=== PATIENT | female | born 2000 | race Caucasian/White ===

== ENCOUNTER 2019-12-02 14:46 | Emergency (ER) | payer OTHER, SELFPAY ==
[2019-12-02 14:48] VITALS: BP 135/88; PULSE 96; RESP 16; TEMP 36.9; O2SAT 99; BMI 24.0
--- NOTE | 2019-12-02 15:01 | ED_ITS ---
HPI - URI/Sore Throat General: Chief Complaint: Dental/Oral Stated Complaint: SORE THROAT Time Seen by Provider: 12/02/19 14:53 Source: patient and family Mode of arrival: ambulatory Limitations: no limitations History of Present Illness: HPI Narrative: Patient is a 19-year-old female who presents to ED today along with a family member for complaints of not being able to keep down her antibiotics. Patient states about a week ago she began having a sore throat and fevers. She was initially seen at [facility] and swabbed for strep which was negative. She was sent home with a diagnosis of allergies and a prescription for allergy medication. Patient states her pain continued to worsen and family member began noticing exudates on her tonsils so recommended she return to [facility] for re-evaluation. She was re-swabbed for strep and apparently tested positive on that visit. She was prescribed amoxicillin but states she vomits after every dose. Family member is concerned for possible dehydration. MD elicited complaint: fever and sore throat Consistency: constant Severity: moderate Able to tolerate fluids by mouth: Yes Associated symptoms: Reports fever(s), nausea and vomiting; Deny abdominal pain, chills, chest pain, diarrhea, headache(s), nasal congestion or sinus pain Treatments prior to arrival: antibiotics Review of Systems Const: Reports: fever; Denies: chills, body aches, change in weight, fatigue or malaise Eyes: Denies: change in vision, blurry vision or photophobia ENMT: Reports: throat pain, enlarged tonsils and painful swallowing; Denies: uvular edema, oral sores/lesions, nasal discharge, nasal congestion, post nasal drip or facial/sinus pain Card: Denies: chest pain, palpitations, irregular heart rhythm, edema, lightheadedness, syncope or pre-syncope Resp: Denies: shortness of breath, productive cough, coughing up blood or chest congestion GI: Reports: nausea and vomiting; Denies: abdominal pain or diarrhea Skin/Breast: Denies: rash Neuro: Denies: headache PFSH ED PFSH: Social History Smoking and tobacco status: smoker, details unknown Female Reproductive History: Date of last menstrual period: 11/25/19 Physical Exam Const: COMMON NORMALS: no apparent distress, average body habitus, oriented x3, no limitations, healthy appearing, alert and well nourished HENMT: COMMON NORMALS: normocephalic, head/scalp atraumatic, hearing grossly normal bilaterally, external ears normal, EAC's normal, TM's normal bilaterally, external nose normal, nasal mucous membranes and turbinates normal and moist oral mucous membranes HEAD & SCALP: normal to inspection, normocephalic and atraumatic FACE & SINUS: normal facial exam and sinuses nontender NOSE: external nose normal and nasal mucous membranes and turbinates normal EX TERNAL EAR: Yes external ears normal EXTERNAL AUDITORY CANAL: EAC's normal TYMPANIC MEMBRANE: TM's normal bilaterally THROAT: tonsils abnormal bilateral erythema and exudates; no peritonsillar mass and no uvular edema Eye: COMMON NORMALS: PERRL, EOMs intact bilaterally and conjunctivae normal CONJUNCTIVA: Yes conjunctivae normal PUPIL: Yes PERRL Neck/C-Spine: GENERAL: Yes lymphadenopathy (bilateral anterior cervical ) Resp: COMMON NORMALS: normal respiratory effort Cardio: COMMON NORMALS: regular rate and regular rhythm RATE: regular rate RHYTHM: regular rhythm Neuro: COMMON NORMALS: oriented x3 SENSORIUM/ORIENTATION: Yes alert Skin: COMMON NORMALS: no rashes or lesions noted GENERAL SKIN EXAM: no rashes or lesions noted Course Vital Signs: Vital signs: Vital Signs Temperature 98.5 F 12/02/19 14:48 Pulse Rate 96 12/02/19 14:48 Respiratory Rate 16 12/02/19 14:48 Blood Pressure 135/88 12/02/19 14:48 Pulse Oximetry 99 12/02/19 14:48 MDM - URI/Sore Throat MDM Narrative: Medical decision making narrative: Patient was given IM Bicillin for treatment of her exudative streptococcal tonsillitis. She was given a liter of fluids for possible dehydration although patient's vital signs do not suggest dehydration. Upon her second visit at [facility] she was prescribed Zofran to help with the nausea and vomiting. She denies abdominal pain/diarrhea. Discharge Plan Discharge Patient Disposition: Home, Self-Care Clinical Impression: Acute streptococcal tonsillitis Qualifiers: Streptococcal tonsillitis recurrence: non-recurrent Qualified Code(s): J03.00 - Acute streptococcal tonsillitis, unspecified Condition: Stable Prescriptions: Discontinued amoxicillin 500 mg Tablet 500 mg PO BID RF: 0 Discharge Orders: Discharge Order (Routine); Ordered 12/02/19 Ordered By: Natalie Doyle Referrals: [facility] [Other] Discharge Diet: Soft Mechanical Discharge Activity: Increase activity as tolerated Patient Instructions: Strep Throat - Adult Activity Restrictions/Additional Instructions: As discussed you have been given an IM antibiotic injection for the strep throat. You do not require any additional antibiotics for treatment. Discontinue the amoxicillin your originally prescribed. You may continue the Zofran for nausea and vomiting as needed. Coding Level of Care Code ED Diamond Sizer And Grader for Chg Fwd Exam Detailed
[2019-12-02] MEDS: sodium chloride 0.9% 1,000 ML 999 ML IV (15:30)
[2019-12-02] MEDS: ondansetron 2 mg/ML SDV 2 mL 4 MG IVP (15:30)
[2019-12-02] MEDS: penicillin g (L-A) 1,200,000 unit/2 mL Syr 1200000 UNIT IM (17:20)
[2019-12-02 17:35] VITALS: PULSE 75; RESP 15; O2SAT 98
== END 2019-12-02 17:36 | disposition home or self-care (01) ==
PROVIDERS: Emergency Provider Physician Assistant
DX: J03.00 Acute streptococcal tonsillitis, unspecified (principal)
CPT/HCPCS: 12345; 96361; 96372; 96374; 96375; 99282; 99283; J0561; J2405; J7030

== ENCOUNTER → 2020-06-26 14:41 | Outpatient (BNVA) | payer OTHER, SELFPAY | PROVIDERS: Visit Provider Obstetrics & Gynecology | DX: Z12.4 Encounter for screening for malignant neoplasm of cervix (principal) | CPT/HCPCS: 88175 ==

== ENCOUNTER → 2020-07-07 16:35 | Outpatient (BNVA) | payer OTHER, SELFPAY | PROVIDERS: Visit Provider Nurse Practitioner Family | DX: J06.9 Acute upper respiratory infection, unspecified (principal) | CPT/HCPCS: 87635 ==

== ENCOUNTER → 2021-06-30 13:06 | Outpatient (BNVA) | payer OTHER, SELFPAY | PROVIDERS: Visit Provider Nurse Practitioner Women's Health | DX: N92.6 Irregular menstruation, unspecified (principal) | CPT/HCPCS: 81025; 84702 ==

== ENCOUNTER → 2021-07-03 14:53 | Outpatient (BNVA) | payer OTHER, SELFPAY | PROVIDERS: Visit Provider Nurse Practitioner Women's Health | DX: N92.6 Irregular menstruation, unspecified (principal) | CPT/HCPCS: 84702 ==

== ENCOUNTER → 2021-08-12 14:43 | Outpatient (BNVA) | payer OTHER, SELFPAY | PROVIDERS: Visit Provider Obstetrics & Gynecology | DX: Z34.90 Encounter for supervision of normal pregnancy, unspecified, unspecified trimester (principal) | CPT/HCPCS: 80307; 84315; 85027; 86592; 86762; 86803; 86850; 86900; 87086; 87340 ==

== ENCOUNTER → 2021-09-09 15:28 | Outpatient (BNVA) | payer OTHER, SELFPAY | PROVIDERS: Visit Provider Obstetrics & Gynecology | DX: Z34.90 Encounter for supervision of normal pregnancy, unspecified, unspecified trimester (principal) | CPT/HCPCS: 84315; 87491; 87591 ==

== ENCOUNTER → 2021-11-18 08:23 | Outpatient (BNVA) | payer MEDICAID, SELFPAY | PROVIDERS: Visit Provider Nurse Practitioner Women's Health | DX: Z34.80 Encounter for supervision of other normal pregnancy, unspecified trimester (principal) | CPT/HCPCS: 81000 ==

== ENCOUNTER → 2021-12-15 10:05 | Outpatient (BNVA) | payer MEDICAID, SELFPAY | PROVIDERS: Visit Provider Obstetrics & Gynecology | DX: Z34.80 Encounter for supervision of other normal pregnancy, unspecified trimester (principal) | CPT/HCPCS: 82950; 84315; 85027 ==

== ENCOUNTER → 2021-12-28 10:16 | Outpatient (BNVA) | payer MEDICAID, SELFPAY | PROVIDERS: Visit Provider Obstetrics & Gynecology | DX: Z34.01 Encounter for supervision of normal first pregnancy, first trimester (principal) | CPT/HCPCS: 81000 ==

== ENCOUNTER → 2022-02-10 10:35 | Outpatient (BNVA) | payer MEDICAID, SELFPAY | PROVIDERS: Visit Provider Obstetrics & Gynecology | DX: Z34.90 Encounter for supervision of normal pregnancy, unspecified, unspecified trimester (principal) | CPT/HCPCS: 84315; 87081 ==

== ENCOUNTER 2022-02-15 06:00 | Day surgery (SDC) | payer MEDICAID, SELFPAY ==
--- NOTE | 2022-02-15 08:35 | P.ANESASSM_ITS ---
Pre-Anesthetic Assessment Height/Weight: Height 1.63 m Preop Diagnosis: epidural epidural Familial anesthetic complications: none Social No alcohol and No tobacco Exam alert, oriented x 3, clear to auscultation bilaterally and regular rate & rhythm Airway Mallampati: Class II Dentition: full Pulmonary None reported CV/HEM None reported None reported Hepatic None reported GI Gastroesophageal Reflux Disease Metabolic None reported Musc/skel None reported Neuropsych None reported Anesthetic Plan ASA status: 2 Anesthesia: Regional (specify below) Risk of > 500 ml blood loss (7ml/kg in children): No Medications/Allergies Home Medications Medication Instructions Recorded Confirmed Last Taken Type prenat.vits,perry,[id number]-vatv-[id number] 1 tab PO DAILY 06/30/21 02/10/22 Unknown History breast pump (Pump In Style #1 ea 12/28/21 02/10/22 Unknown Rx Advanced) ferrous sulfate 325 mg (65 mg 325 mg PO DAILY 01/11/22 02/10/22 Unknown History iron) tablet,delayed release Allergies Allergy/AdvReac Type Severity Reaction Status Date / Time No Known Allergies Allergy Verified 02/10/22 10:56 [facility] Anesthesia Medical History No pertinent past medical history Denies diabetes, asthma, hypertension, seizures, DVT/PE PCP: [facility] Surgical History S/P breast augmentation x2 08/2019, bilateral breast augmentation revision of the left side in February or March of 2020 due to encapsulation/rejection of implants S/P wisdom tooth extraction 01/2017 Family History Grandfather Stroke maternal Heart disease maternal and paternal Denies family history of Colon cancer Ovarian cancer Diabetes Hyperlipidemia Breast cancer Hypertension Uterine cancer Thyroid condition Female Reproductive History Date of last menstrual period: 11/25/19 Data Anesthesia Cardiac Studies: No Data to Display
== END 2022-02-15 06:01 | disposition home or self-care (01) ==
LOC: OPS 03-04 09:21
PROVIDERS: PCP Nurse Practitioner Family; Visit Provider Obstetrics & Gynecology
DX: Z34.90 Encounter for supervision of normal pregnancy, unspecified, unspecified trimester (principal); Z3A.00 Weeks of gestation of pregnancy not specified
CPT/HCPCS: 81000

== ENCOUNTER 2022-02-15 06:11 | Outpatient (CLI) | payer MEDICAID, SELFPAY ==
--- NOTE | 2022-02-15 06:15 | US_ITS ---
WS: [id number] LIMITED OBSTETRICAL ULTRASOUND HISTORY: Z34.90 - Encounter for supervision of normal , evaluate growth. COMPARISON: 07/17/2021, 10/23/2021, 11/16/2021 and 01/11/2022 Presentation: Cephalic. Cervix: Closed and normal length. Placenta: Posterior, no previa. Grade: 3 HEART: FHR of 157 BPM. measurements: BPD = 9.5 cm = 38w6d HC = 34.7 cm = 40w2d AC = 30.4 cm = 34w3d FL = 7.4 cm = 38w0d Visually the amniotic fluid is low normal. EFW: 2937 g; 54 %. AGA by ultrasound: 37w6d LINDA by ultrasound: 03/02/2022 Growth asymmetry. Abdominal circumference is lagging behind the remaining parameters by approximately 4-6 weeks. Measurements appear accurately obtained and adequate. As compared to the first trimester ultrasound there has been appropriate growth otherwise. US/[place] [id number] IMPRESSION: 1. Single intrauterine gestation of 37 weeks 6 days with an EDC of 03/02/2022. 2. Estimated weight at the 54th percentile for age. 3. Abdominal circumference lagging behind the remaining biometry by 4-6 weeks. Suggest asymmetric intrauterine growth retardation. The estimated overall biom etry is now more concordant with the first trimester ultrasound than biometry o f 01/11/2022. Still asymmetry and small abdominal circumference. 4. Grade 3 placenta.
== END 2022-02-15 06:12 | disposition home or self-care (01) ==
PROVIDERS: PCP Nurse Practitioner Family; Visit Provider Obstetrics & Gynecology
DX: Z34.90 Encounter for supervision of normal pregnancy, unspecified, unspecified trimester (principal)
CPT/HCPCS: 76816

== ENCOUNTER → 2022-02-22 08:13 | Outpatient (BNVA) | payer MEDICAID, SELFPAY | PROVIDERS: PCP Nurse Practitioner Family; Visit Provider Obstetrics & Gynecology | DX: Z34.80 Encounter for supervision of other normal pregnancy, unspecified trimester (principal) | CPT/HCPCS: 81000 ==

== ENCOUNTER → 2022-03-01 08:23 | Outpatient (BNVA) | payer MEDICAID, SELFPAY | PROVIDERS: PCP Nurse Practitioner Family; Visit Provider Obstetrics & Gynecology | DX: Z34.80 Encounter for supervision of other normal pregnancy, unspecified trimester (principal) | CPT/HCPCS: 81000 ==

== ENCOUNTER 2022-03-05 21:53 | Outpatient (CLI) | payer MEDICAID, SELFPAY ==
[2022-03-05 22:12] VITALS: BMI 31.7
[2022-03-05 22:13] VITALS: RESP 16
[2022-03-05 23:36] LABS: Add Urine Microscopic? NO; Charge for UA Resulting for Rev
[2022-03-05 23:44] VITALS: BP 118/64; PULSE 83
[2022-03-05 23:51] LABS: Bilirubin Urine Neg (Negative); Blood Urine Neg (Negative); Glucose Urine UA Norm (Normal); Ketones Urine Negative (Negative); Leukocyte Esterase Urine Negative (Negative); Nitrate Urine Negative (Negative); Protein Urine Neg (Negative); Urine Appearance Clear (CLEAR); Urine Color Yellow (Yellow); Urobilinogen Urine Norm (Negative); pH Urine 7 (5-7)
[2022-03-06 00:45] VITALS: RESP 16
[2022-03-06 00:47] VITALS: BP 115/67; PULSE 93
== END 2022-03-06 00:57 | disposition home or self-care (01) ==
LOC: OPOB 21:57 → OBGYN 21:58
PROVIDERS: PCP Nurse Practitioner Family; Visit Provider Obstetrics & Gynecology
DX: O26.899 Other specified pregnancy related conditions, unspecified trimester (principal); Z3A.00 Weeks of gestation of pregnancy not specified; R10.9 Unspecified abdominal pain
CPT/HCPCS: 59025; 81003; 99211

== ENCOUNTER 2022-03-07 21:57 | Inpatient (IN) | payer MEDICAID, SELFPAY ==
[2022-03-07] VITALS (12 sets, daily range): BP systolic 112–137; BP diastolic 67–90; PULSE 90–97; RESP 16–18; TEMP 36.2–36.8; BMI 32.2
[2022-03-07 19:14] LABS: Nitrazine Paper, PH Negative
[2022-03-07 19:21] LABS: Basophils % 0.3 %; Eosinophils # 0.1 10^3/uL (0.0-0.8); Eosinophils % 1.5 %; Hematocrit 38.5 % (37.0-47.0); Hemoglobin 13.6 g/dL (11.5-15.3); Lymphocytes # 2.7 10^3/uL (0.8-4.8); Lymphocytes % 28.3 %; Mean Corpuscular HGB Conc 35.3 g/dL (30.0-36.0); Mean Corpuscular Volume 87.7 fl (81-99); Mean Platelet Volume 10.1 fL (7.4-10.4); Monocytes # 0.6 10^3/uL (0.2-0.9); Monocytes % 6.3 %; Neutrophils # 6.07 10^3/uL (1.8-7.7); Neutrophils % 63.1 %; Nucleated Red Blood Cells % 0 %; Platelet Count 241 10^3/cmm (130-400); Red Blood Count 4.39 10^6/uL (4.1-5.3); Red Cell Distribution Width 14.2 % (12.1-15.1); White Blood Count 9.6 10^3/uL (4.0-10.0)
[2022-03-08] VITALS (123 sets, daily range): BP systolic 100–186; BP diastolic 56–114; PULSE 69–134; RESP 16–18; TEMP 36.3–37.2; O2SAT 84–100
[2022-03-08] MEDS: lactated ringers 1,000 ML 999 ML IV (02:07)
[2022-03-08] MEDS: fentaNYL 50 mcg/mL INJ 2mL IVP (02:13)
[2022-03-08] MEDS: dextrose 5%-lactated ringers 1,000 ML 125 ML IV ×2 (03:18→07:58)
--- NOTE | 2022-03-08 03:23 | P.ANESUD_ITS ---
Documented by User: Miguel Angel Muñoz Jr, MEDICAL POLICY SPECIALIST 03/08/22 03:24 Pre-Anesthetic Update Pre-Anesthetic Assessment: Date of Surgery/Procedure: 03/08/22 Preop Diagnosis: epidural Proposed Procedure: RADHA Any changes to Pre-Anesthetic Assessment?: No Last Intake: 1500 Labs Last 48hrs: Short CBC 03/07/22 Range/Units 18:50 WBC 9.6 (4.0-10.0) 10^3/ uL Hgb 13.6 (11.5-15.3) g/dL Hct 38.5 (37.0-47.0) % MCV 87.7 (81-99) fl Plt Count 241 (130-400) 10^3/c mm Neut % (Auto) 63.1 % Neut # (Auto) 6.07 (1.8-7.7) 10^3/u L Vitals: Temperature 97.6 F 03/07/22 23:41 Temperature Source Tympanic 03/07/22 23:41 Pulse Rate 130 H 03/08/22 03:20 Pulse Rhythm 03/07/22 19:00 Pulse Strength 3+ Normal 03/07/22 19:00 Respiratory Rate 16 03/08/22 02:13 Respiratory Effort Non-Labored 03/08/22 02:13 Respiratory Depth Normal 03/08/22 02:13 Respiratory Patter n 03/08/22 02:13 Blood Pressure 122/76 03/08/22 03:18 Pulse Oximetry 90 03/08/22 03:20 Oxygen Delivery Me thod 03/07/22 19:00 Exam: Pre-Anes Outpt Exam: alert, oriented x 3, clear to auscultation bilaterally and regular rate & rhythm Cardiac Studies: No Data to Display Documented by User: Drew Ellis DO 03/08/22 08:46 Pre-Anesthetic Update Pre-Anesthetic Assessment: Date of Surgery/Procedure: 03/08/22 Cardiac Studies: No Data to Display
--- NOTE | 2022-03-08 03:25 | ANES.PROC ---
Anesthesia Procedures Procedure/Date: 03/08/22 Epidural: Time Out Performed: Yes Consents Signed: Procedure Consent Consent: requested by attending/covering physician, from patient, risks and benefits reviewed and patient agrees to proceed Lumbar Level: L3-L4 Epidural position: sitting Epidural procedure: sterile prep of area, 1% lidocaine to numb the area, 18 g needle, neg for paresthesia, test dose given, 1.5% xylocaine 1:200k epi (5cc), no systemic response, sterile dressing applied, L.U.D. no apparent complications and 0.2% Ropiavacaine @ mls/hr (13cc/hour) Additional Comments: JAD at 6cm. cath placed 3 cm into space. Pt tolerated well
[2022-03-08] MEDS: oxytocin 30 UNIT/500 ML BAG 600 UNIT IV (07:58)
--- NOTE | 2022-03-08 09:12 | P.PCNOB_ITS ---
Delivery Note: Date of delivery: March 08, 2022 Pre-delivery diagnoses: Term Post-delivery diagnoses: Term delivered Procedure: A spontaneous vaginal delivery Delivering Physician: Manjeet Mclaughlin MD Estimated blood loss (mL): 500 Delivery: The patient was noted to be complete and pushing, so was placed in the dorsal lithotomy position, prepped and draped in the usual sterile fashion for a vaginal delivery. Pt. Noted to have epidural anesthesia. At 0856 the patient delivered a term male weighing 3715 g with scores of 8 and 9 at one and five minutes, respectively. The vertex was delivered spontane ously over intact perineum. The patient was asked to push and the head delivered spontaneously in the NEO position, over an intact perineum. A nuchal cord was checked and 1 noted, and delivered through. The anterior shoulder delivered easily and the posterior shoulder followed. The remainder of the infant was easily delivered and the oropharynx and nasopharynx was bulb suctioned. The was noted to have spontaneous cry and spontaneous movement of all four extremities. The cord was clamped x 2 and cut and noted to have 2 arteries and one vein. The infant was passed to the mother's abdomen where nursing personnel were in attendance. Her blood sample was then obtained. The placenta delivered intact spontaneously and the uterus was explored. 20 units of Pitocin was placed in the IV bag to firm the uterus. Examination of the cervix and vaginal vault did not reveal any lacerations. A vaginal pack was then placed. Examination of the perineum showed second-degree vaginal laceration. The laceration was repaired with 3-0 Vicryl in the normal fashion in a running non locking fashion to reapproximate the laceration in layers. The vaginal pack was then removed. The patient tolerated this procedure well, and recovered in L&D with her in their LDR room. All sponge and needle counts were correct. History History History 1 Term Miscarriages/Ectopic Living Children 0 Coding Level of Care Code Acute Commercial Title Examiner for Chg Fwchavez
[2022-03-08] MEDS: acetaminophen 325 mg Tablet 650 MG PO ×2 (10:27→17:18)
[2022-03-08] MEDS: HYDROcodone-acetaminophen 5-325 mg Tablet PO ×2 (11:51→18:31)
[2022-03-08] MEDS: ibuprofen 800 mg tablet PO ×2 (14:20→20:28)
[2022-03-08] MEDS: docusate sodium 100 mg Capsule PO (17:17)
[2022-03-08 21:56] LABS: Hematocrit 31.3 % (37.0-47.0); Hemoglobin 11.2 g/dL (11.5-15.3); Mean Corpuscular HGB Conc 35.8 g/dL (30.0-36.0); Mean Corpuscular Hemoglobin 31.5 pg (28.0-34.0); Mean Corpuscular Volume 87.9 fl (81-99); Mean Platelet Volume 9.7 fL (7.4-10.4); Platelet Count 197 10^3/cmm (130-400); Red Blood Count 3.56 10^6/uL (4.1-5.3); Red Cell Distribution Width 14.2 % (12.1-15.1); White Blood Count 12.1 10^3/uL (4.0-10.0)
[2022-03-09] VITALS (16 sets, daily range): BP systolic 100–125; BP diastolic 64–81; PULSE 76–93; RESP 16; TEMP -12.4–36.9; O2SAT 95–97
--- NOTE | 2022-03-09 08:29 | P.CONIM_ITS ---
Providers/Reason For Consult Consulting Physician/Specialty*: OB Reason for Consult*: PDPH Attending Physician: Manjeet Mclaughlin MD Primary Care Provider: Bia Cramer APN History of Present Illness History of Present Illness Marlen Escoto is a 21 year old female who recently delivered with labor epidural for analgesia. I was called to bedside to evaluated for possible post dural puncture headache. Review of notes do not indicate difficulty with epidural placement or complications. Report from bedside RN is the patient is active, out of bed, and took a shower this morning. On arrival to patient room I found the patient lying in the right lateral recumbent position significant other resting on couch with light dimmed. Patient reports pain mostly in her neck approximately C4-C5, radiating to her occipital prominence and occasionally down the posterior back and even at times into her right shoulder and pectoris muscles. The pain in made worse when sitting and standing. On standing the patient describes worsening pain in the back of the neck, upper back, and radiating to occipital bone. She global headache or head pain, even with arising to sitting or standing position. With standing she endorses experiencing very tight back muscles. The pain is not worsened by loud noises, light. The pain is improved with rest and ibuprofen and also made better by lying flat, especially on side or supine without pillow. Denies hx of migraines or chronic headache, but she does have a history of muscle aches/pain/spasms which she will occasionally take gabapentin for with significant relief. She denies weakness. The patient describes her labor as long, with about 45 minutes of pushing time, and requiring considerable effort. She states her arms and back muscles are fatigued and she worked her back out hard. Medications/Allergies Home Medications Medication Instructions Recorded Confirmed Last Taken Type prenat.vits,perry,[id number] 1 tab PO DAILY 06/30/21 03/07/22 03/07/22 10:00 History breast pump (Pump In Style #1 ea 12/28/21 03/01/22 Unknown Rx Advanced) Allergies Allergy/AdvReac Type Severity Reaction Status Date / Time No Known Allergies Allergy Verified 03/01/22 08:38 Current Medications Generic Name Dose Route Start Last Admin Trade Name Freq PRN Reason Stop Dose Admin Acetaminophen 650 mg 03/07/22 18:44 03/08/22 17:18 Acetaminophen 325 Mg Tablet PO 650 mg Q6H PRN Administration Mild pain or temp > 100.4 Hydrocodone Bitart/Acetaminophen 1 - 2 tab 03/08/22 09:15 03/08/22 18:31 Hydrocodone-Acetaminophen 5-325 Mg Tablet PO 2 tab Q6H PRN Administration MODERATE TO SEVERE PAIN Docusate Sodium 100 mg 03/08/22 18:00 03/08/22 17:17 Docusate Sodium 100 Mg Capsule PO 100 mg BID YEISON Administration Fentanyl 25 - 100 mcg 03/07/22 18:44 03/08/22 02:13 Fentanyl 50 Mcg/Ml Inj 2ml IVP 25 mcg Q1H PRN Administration SEVERE PAIN Dextrose/Lactated Ringer's 1,000 mls @ 125 mls/hr 03/07/22 18:45 03/08/22 20:07 Dextrose 5%-Lactated Ringers IV Not Given .Q8H YEISON Oxytocin 30 unit in 500 mls @ 600 mls/hr 03/07/22 18:44 03/08/22 11:30 Pitocin IV Infused .Q50M PRN Titration After delivery of infant Protocol Ropivacaine 200 mg in 100 mls @ 13 mls/hr 03/08/22 02:00 03/08/22 20:08 Naropin Premix EPIDURAL Not Given .Q7H42M YEISON Lactated Ringer's 1,000 mls @ 999 mls/hr 03/08/22 01:48 03/08/22 03:08 Lactated Ringers IV Infused .Q1H1M PRN Infusion See label comments Ibuprofen 800 mg 03/08/22 15:00 03/08/22 20:28 Ibuprofen 800 Mg Tablet PO 800 mg TID YEISON Administration PFSH Acute PFSH: Medical History (Updated 03/09/22 @ 09:28 by Drew Ellis DO) No pertinent past medical history Denies diabetes, asthma, hypertension, seizures, DVT/PE PCP: [facility] Surgical History S/P breast augmentation x2 08/2019, bilateral breast augmentation revision of the left side in February or March of 2020 due to encapsulation/rejection of implants S/P wisdom tooth extraction 01/2017 Family History Grandfather Stroke maternal Heart disease maternal and paternal Denies family history of Colon cancer Ovarian cancer Diabetes Hyperlipidemia Breast cancer Hypertension Uterine cancer Thyroid condition Female Reproductive History: Date of last menstrual period: 11/25/19 : 1 Vitals/I&O/Wt Last Vital Signs Temp 98.4 F 03/09/22 03:00 Pulse 80 03/09/22 03:00 Resp 16 03/09/22 03:00 BP 117/77 03/09/22 03:00 Pulse Ox 97 03/09/22 03:00 03/08/22 03/09/22 03/09/22 22:59 06:59 14:59 Intake Total 1000 / 2171.333 Balance 1000 / 2171.333 Weight last 48 hrs Weight 85.275 kg Physical Exam Narrative: On exam patient is exquisitely tender in left posterior neck at C4-C5 tubercles, with diffuse tenderness throughout out posterior neck. She does not have tender points in posterior spinal longitudinal muscles, however these also are diffusely tender. Flexion over the C4/C5 tender point with movement away in a strain counter- strain pattern provided the patient some relief. Acupressure at the apex of the occipital bone provided some relief to the patient. Myofascial release of the the posterior occipital bone and neck provided some relief to the patient. Gentle traction of the head from the base provided some relief to the patient. Myofascial release of the trapezius muscle using b/l arm traction provided no relief to the patient. Const: COMMON NORMALS: no acute distress, average body habitus, patient oriented x3, no limitations, healthy appearing and well nourished GENERAL APPEARANCE: cooperative, comfortable, well kempt and well developed HENMT: COMMON NORMALS: normocephalic, atraumatic and hearing grossly normal bilaterally HEAD & SCALP: normocephalic and atraumatic FACE & SINUS: normal facial exam Eye: COMMON NORMALS: Equal, round and reactive pupils present PUPIL: Yes Equal, round and reactive pupils present Neck/C-Spine: COMMON NORMALS: full ROM Neuro: COMMON NORMALS: patient oriented x3 Psych: APPEARANCE: Yes well kempt Urinary Catheter Management: Cordero Latex: Cath Placed During This Visit: yes Urinary Catheter Date of Insertion: 03/08/22 Urinary Catheter Time of Insertion: 03:55 Data : 06/27/22 21:45 A&P Assessment and plan (1) Muscle spasm: Status: Acute Plan Given the history, lack of photophobia and hyperacusis and improvement with osteopathic examination and NSAID I do believe this is more likely related to acute muscle tension/spasm associated with efforts of delivery. It is possible that this is a PDPH. I discussed these finding with the patient as well as the possible therapeutic interventions which could be used including a wait and see approach, muscle relaxants, steroids, or blood patch. We discussed the risk of blood patch including success rates varying widely depending on the study used. We discussed risk including failure of blood patch, infection, nerve injury, dural puncture worsening headache, and even permanent nerve injury including paralysis. The patient declined blood patch at this time and would like to trial a muscle relaxant. Coding Level of Care Code Acute Cloth Finishing Range Operator Chief for Kimberly Engel Diagnoses Muscle spasm M62.838
[2022-03-09] MEDS: docusate sodium 100 mg Capsule PO (08:31)
[2022-03-09] MEDS: prenatal vitamin Capsule 1 CAP PO (08:31)
[2022-03-09] MEDS: ibuprofen 800 mg tablet PO (08:32)
[2022-03-09] MEDS: acetaminophen 325 mg Tablet 650 MG PO (08:42)
[2022-03-09] MEDS: baclofen 10 mg Tablet 20 MG PO (09:26)
--- NOTE | 2022-03-09 14:06 | ANE.PACU2 ---
Inpatient post-anesthesia follow up: Airway intact: Yes Vital signs: Temperature 98.2 F Pulse Rate 79 Respiratory Rate 16 Blood Pressure 114/75 Pulse Oximetry 97 Oxygen Delivery Me thod Room Air Oxygen Flow Rate Fraction of Inspir ed Oxygen Hydration adequate: Yes Nausea and vomiting: No Pain level: 1 Mental status: Baseline
--- NOTE | 2022-03-09 14:07 | P.DS_ITS ---
Discharge Providers FLOOR SANDER Date of Admission: 03/07/22 21:57 Date of Discharge: 03/09/22 Attending Provider at Admission: Manjeet Mclaughlin MD Attending Provider at Discharge: Manjeet Mclaughlin MD Primary Care Provider: Bia Cramer APN Diagnoses at Discharge Discharge Diagnosis (1) Muscle spasm: Status: Acute Reason for Visit Reason for Visit: contractions Hospital Course Hospital Course Ms. Escoto is a 21 year old with an LMP of 05/09/2021 and an EDC of 03/07/2022 redated by a 6 week ultrasound, placing her at 40 1/7 weeks and to labor and delivery complaining of contractions. Cervical changes were noted and she was admitted and made a labor. She progressed to have a spontaneous vaginal delivery without complications. She delivered a term male weighing 3715 g with scores of 8 and 9. observation significant for spinal headache which was treated by anesthesiology. She is afebrile and hemodynamically stable. Tolerating diet well. Ambulating without difficulty. Information Peripartum Data: Delivery Method: Vaginal Physical Exam Narrative: GA; alert and oriented x 3 HEENT: normal Breasts: engorged Nipples - skin intact Lungs; clear to auscultation Heart: regular rhythm, no murmurs. Abd: Appropriately tender. BS+. Uterine fundus below umbilicus. No Fundal Tenderness. Perineum: normal lochia. Extremities: no edema, no cyanosis, no tenderness. Urinary Catheter Management: Cordero Latex: Cath Placed During This Visit: yes Reason for Continuing Indwelling Catheter: Required Immobilization for Trauma or Surgery or Anesthesia Urinary Catheter Date of Insertion: 03/08/22 Urinary Catheter Time of Insertion: 03:55 History History History 1 Term Miscarriages/Ectopic Living Children 0 Discharge Data Studies Completed and Pending Laboratory Results WBC 12.1 10^3/uL (4.0-10.0) H 03/08/22 21:45 RBC 3.56 10^6/uL (4.1-5.3) L 03/08/22 21:45 Hgb 11.2 g/dL (11.5-15.3) L 03/08/22 21:45 Hct 31.3 % (37.0-47.0) L 03/08/22 21:45 MCV 87.9 fl (81-99) 03/08/22 21:45 MCH 31.5 pg (28.0-34.0) 03/08/22 21:45 MCHC 35.8 g/dL (30.0-36.0) 03/08/22 21:45 RDW 14.2 % (12.1-15.1) 03/08/22 21:45 Plt Count 197 10^3/cmm (130-400) 03/08/22 21:45 MPV 9.7 fL (7.4-10.4) 03/08/22 21:45 Neut % (Auto) 63.1 % 03/07/22 18:50 Lymph % (Auto) 28.3 % 03/07/22 18:50 Stephenson % (Auto) 6.3 % 03/07/22 18:50 Eos % (Auto) 1.5 % 03/07/22 18:50 Baso % (Auto) 0.3 % 03/07/22 18:50 Neut # (Auto) 6.07 10^3/uL (1.8-7.7) 03/07/22 18:50 Lymph # (Auto) 2.7 10^3/uL (0.8-4.8) 03/07/22 18:50 Stephenson # (Auto) 0.6 10^3/uL (0.2-0.9) 03/07/22 18:50 Eos # (Auto) 0.1 10^3/uL (0.0-0.8) 03/07/22 18:50 Baso # (Auto) 0.0 10^3/uL (0.0-0.1) 03/07/22 18:50 Nucleated RBC % (auto) 0 % 03/07/22 18:50 Nucleated RBCs # 0.0 /100WBC 03/07/22 18:50 Vitals Last Vital Signs Temp 98.2 F 03/09/22 11:00 Pulse 79 03/09/22 12:00 Resp 16 03/09/22 03:00 BP 114/75 03/09/22 12:00 Pulse Ox 97 03/09/22 03:00 Discharge Plan Discharge Patient Disposition: Home Condition: Stable Prescriptions: New ibuprofen 800 mg tablet 800 mg PO TID PRN (Reason: pain) Qty: 60 0RF acetaminophen 325 mg capsule 325 mg PO Q4H PRN (Reason: fever or pain) Qty: 60 0RF Continued prenat.vits,perry,[id number]-[id number] Tablet 1 tab PO DAILY 0RF (DME) breast pump [Pump In Style Advanced] Device See Rx Instructions .MEDSUPPLY Qty: 1 0RF Rx Instructions: As directed Discharge Orders: Discharge Order (Routine); Ordered 03/09/22 Ordered By: Manjeet Mclaughlin Referrals: Burke Bucio MD [Physician] - 04/12/22 3:00 pm (6 week post- ) Discharge Diet: Usual diet Discharge Activity: Limit activity as instructed Patient Instructions: Depression (DC), Expression, Collection and Storage of Breast Milk (DC), Bleeding (DC), Preeclampsia and [place] mpsia After Delivery (GEN), OB Discharge Report, OB Food/Drug Interaction Guide, Opioid Safety, OB Home Care, OB Vaginal Deliveries - [facility] Activity Restrictions/Additional Instructions: 1. Please call [facility] clinic on next working day to make your appointment in 6 weeks. 2. Please stay home until you come back to the clinic on first post-operative check up. 3. Please follow instructions on your medications CAREFULLY. 4. If you have abdominal incision, do not cover it unless dressing is necessary because of drainage. OK to shower, but avoid bath. Leave steri-strips until they fall off. If they are still on one week after surgery, you may remove them. 5. If you had vaginal surgery or vaginal repair, Dr. Mclaughlin may instruct you to take SITZ bath. 6. Yellow, blood tinged odorous vaginal discharge is usually normal after hysterectomy or vaginal surgeries. 7. No sexual intercourse, tampons, or douches until you are completely released from the post-operative care. 8. Avoid constipation by eating right and maybe using some Metamucil or Milk of Magnesia. 9. All prescription refills are given during the working hours. Please do no wait till it runs out. Call the clinic at [phone] before your medication runs out. The clinic will get in touch with your doctor to prescribe medications if necessary. 10. Please remain within 40 mile radius from our hospital because emergencies do happen now and then during the post-operative period. 11. If you have stairs at home, take one step at a time slowly and minimize the number of trips. It helps to stay in one floor for the next few days. No lifting except what you can lift by one hand until you are released from the post-operative care. 12. Driving is discouraged until you are well healed. It may be 3-4 weeks before you feel strong enough to drive. You should be able to turn and look through the rear window without pain and you should be able to push the brake pedal very hard without pain before you drive. No fast rules, but SAFETY should be your primary concern. DO NOT drive if you are on sedating medications such as narcotics. 13. Call the clinic (during working hours) to make urgent appointment or go to the Emergency room, if any of the following occurs: i. Vaginal bleeding becomes heavy, more than a period. ii. Incision becomes red and sore, or drains pus. iii. Your temperature is over 100.4 or you have chill. iv. IV site becomes red and swollen (a little ``knot?? is usually OK) v. Persistent nausea and vomiting vi. Persistent constipation or diarrhea vii. Rash or allergic reaction to medications. Discharge Attestations FLOOR SANDER Time Spent in Discharge Care*: greater than 30 min Coding Level of Care Code Acute Editorial Clerk for Kimberly Engel Diagnoses Muscle spasm M62.838
== END 2022-03-09 15:55 | disposition home or self-care (01) | DRG 807 ==
LOC: OPOB 21:57 → OBGYN 21:57
PROVIDERS: Admitting Provider Obstetrics & Gynecology; PCP Nurse Practitioner Family; Visit Provider Obstetrics & Gynecology
DX: O36.63X0 Maternal care for excessive fetal growth, third trimester, not applicable or unspecified (principal); Z37.0 Single live birth; O69.2XX0 Labor and delivery complicated by other cord entanglement, with compression, not applicable or unspecified; O69.0XX0 Labor and delivery complicated by prolapse of cord, not applicable or unspecified; O70.1 Second degree perineal laceration during delivery; Z3A.40 40 weeks gestation of pregnancy; O75.89 Other specified complications of labor and delivery; M62.838 Other muscle spasm; Z86.16 Personal history of COVID-19
CPT/HCPCS: 36415; 51702; 59025; 59409; 83986; 85025; 85027; 96374; 99211; J2795; J3010

== ENCOUNTER → 2022-12-14 16:34 | Outpatient (BNVA) | payer MEDICAID, SELFPAY | PROVIDERS: PCP Nurse Practitioner Family; Visit Provider Registered Nurse Neonatal Intensive Care | DX: J02.9 Acute pharyngitis, unspecified (principal) | CPT/HCPCS: 87071; 87880 ==

== ENCOUNTER 2023-06-16 07:25 | Outpatient (CLI) | payer OTHER, SELFPAY ==
--- NOTE | 2023-06-16 07:28 | US_ITS ---
WS: [id number] EARLY OBSTETRICAL ULTRASOUND (<14 WEEKS). HISTORY: SUPERVISION OF OTHER NORMAL , 1ST TRIMESTER COMPARISON: None available. Single intrauterine gestational sac is identified. Cardiac activity at 171 BPM. [place]-rump length jean sures 1.6 cm which corresponds to a gestation of 8w0d. Normal-appearing yolk sac and amnion demonstra donna. No subchorionic hemorrhage. No free fluid. Thick-walled corpus luteal cyst RIGHT ovary measures 1.9 x 1.4 x 1.7 cm. Normal LEFT ovary. IMPRESSION: 1. Single intrauterine gestation of 8 weeks 0 days with an EDC of 01/26/2024. 2. Normal cardiac activity.
== END 2023-06-16 07:26 | disposition home or self-care (01) ==
LOC: RAD 07:25
PROVIDERS: PCP Nurse Practitioner Family; Visit Provider Family Medicine
DX: Z34.81 Encounter for supervision of other normal pregnancy, first trimester (principal)
CPT/HCPCS: 76801

== ENCOUNTER 2023-09-06 07:47 | Outpatient (CLI) | payer OTHER, SELFPAY ==
--- NOTE | 2023-09-06 08:07 | USR_ITS ---
PROCEDURE INFORMATION: Exam: US , Limited Exam date and time: 09/06/2023 8:14 AM Age: 22 years old Clinical indication: Screening exam; Routine US, uterus; Additional info: Anatomy check/2nd trimester LABS AND CLINICAL REPORTS: Last menstrual period start date: 04/21/2023 Gestational age (Established): 19 w 5 d Estimated due date (Established): 01/26/2024 TECHNIQUE: Imaging protocol: Real-time ultrasound of the maternal uterus with image documentation. Exam focused on the clinical indication. COMPARISON: US OB <= 14 weeks fetus [id number] 06/16/2023 7:47 AM FINDINGS: Gestation: Intrauterine gestation. Vertex presentation. heart rate: 141 bpm position: Vertex Placenta: Posterior. Grade 1. No sonographic evidence of previa. ANATOMY: head: Unremarkable heart four-chamber view, heart size and position: Unremarkable. kidneys: Unremarkable. stomach: Normal. urinary bladder: Normal. spine: Limited assessment. Unremarkable. Umbilical cord vessel number: Three-vessel cord. Normal cord insertion. extremities: Unremarkable where visualized. external genitalia: Male BIOMETRY: Gestational age (AUA): 20 w 1 d LINDA: January 23, 2024. Estimated weight: 331 g - OOR for percentage. Biparietal diameter (BPD): 4.69 cm. EGA (BPD) is 20 w 1 d Head circumference (HC): 17.87 cm. EGA (HC) is 20 w 2 d Abdominal circumference (AC): 14.69 cm. EGA (AC) is 20 w 0 d Humerus length (HL): 3.09 cm. EGA (HL) is 20 w 0 d Femur length (FL): 3.25 cm. EGA (FL) is 20 w 1 d Cephalic Index (CI): 85 % HC/AC: 1.22 FL/HC: 18.2 % FL/AC: 22.1 % Amniotic fluid: Unremarkable for age. US/US OB >= 14 weeks fetus [id number] IMPRESSION: Single fetus with estimated gestational age of 20 weeks and 1 day. LINDA: January 23, 2024. heart rate of 141 bpm. Unremarkable
== END 2023-09-06 07:48 | disposition home or self-care (01) ==
LOC: RAD 07:47
PROVIDERS: PCP Nurse Practitioner Family; Visit Provider Family Medicine
DX: Z34.82 Encounter for supervision of other normal pregnancy, second trimester (principal)
CPT/HCPCS: 76805

== ENCOUNTER 2024-01-18 13:48 | Outpatient (CLI) | payer OTHER, SELFPAY ==
[2024-01-18] VITALS (8 sets, daily range): BP systolic 115–135; BP diastolic 73–88; PULSE 96–111; TEMP 35.7; BMI 33.6
== END 2024-01-18 16:16 | disposition home or self-care (01) ==
LOC: OPOB 13:52 → OBGYN 13:52
PROVIDERS: PCP Family Medicine; Visit Provider Family Medicine
DX: O26.899 Other specified pregnancy related conditions, unspecified trimester (principal); Z3A.00 Weeks of gestation of pregnancy not specified; R10.9 Unspecified abdominal pain
CPT/HCPCS: 59025; 99211

== ENCOUNTER 2024-01-19 14:50 | Inpatient (IN) | payer OTHER, SELFPAY ==
[2024-01-19] VITALS (112 sets, daily range): BP systolic 91–208; BP diastolic 52–125; PULSE 89–155; RESP 16–18; TEMP 36.3–36.7; O2SAT 84–100; BMI 33.7
[2024-01-19 06:28] LABS: Basophils % 0.2 %; Eosinophils # 0.1 10^3/uL (0.0-0.8); Eosinophils % 1.3 %; Hematocrit 38.6 % (36-47); Lymphocytes # 2.1 10^3/uL (0.8-4.8); Lymphocytes % 25.1 %; Mean Corpuscular HGB Conc 33.9 g/dL (30-55); Mean Corpuscular Hemoglobin 29.7 pg (27-33); Mean Corpuscular Volume 87.5 fl (85-98); Mean Platelet Volume 9.5 fL (7.4-10.4); Monocytes # 0.5 10^3/uL (0.2-0.9); Monocytes % 5.7 %; Neutrophils # 5.58 10^3/uL (1.8-7.7); Neutrophils % 67.3 %; Nucleated Red Blood Cells % 0 %; Platelet Count 205 10^3/cmm (157-399); Red Blood Count 4.41 10^6/uL (3.85-5.65); Red Cell Distribution Width 13.3 % (12.1-15.1); White Blood Count 8.29 10^3/uL (3.29-11.43)
--- NOTE | 2024-01-19 07:50 | P.HP_ITS ---
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 Reports contractions started intermittently a couple of days ago and became more consistent yesterday. This morning about 4am the contractions intensified. Denies LOF, vaginal bleeding. Reports good movement. care has been good and starting in the 1st trimester. Declined recommended Tdap in this after discussion of risks and benefits. Present Details : 2 Para: 1 Labs Blood type OB HPI: O (+) positive Rubella: Immune RPR: Negative GBS: Negative HBsAG: Negative Other Lab Information: HCV Ab negative HIV negative Chlamydia/gonorrhea negative Initial H/H 14.3/40.9 Pap smear ASCUS with negative HPV 1hr GTT passed (77) 3rd trimester H/H 12.2/35.5 Review of Systems 2 Const: Denies: fever(s) or chills Card: Denies: chest pain or palpitations Resp: Denies: dyspnea : Denies: difficulty voiding or dysuria Medications/Allergies Home Medications Medication Instructions Recorded Confirmed Last Taken Type gdtaucnw-[id number]-Ao-FA 1 mg 1 tab PO ONCE 01/18/24 01/18/24 01/17/24 08:00 History tablet Allergies Allergy/AdvReac Type Severity Reaction Status Date / Time No Known Allergies Allergy Verified 12/14/22 16:27 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 PFSH: Medical History (Updated 01/19/24 @ 09:32 by Itzel Alonso DO) No pertinent past medical history Denies diabetes, asthma, hypertension, seizures, DVT/PE PCP: [facility] Surgical History S/P wisdom tooth extraction 01/2017 S/P breast augmentation x2 08/2019, bilateral breast augmentation revision of the left side in February or March of 2020 due to encapsulation/rejection of implants Family History Grandfather Stroke maternal Heart disease maternal and paternal Denies family history of Colon cancer Ovarian cancer Diabetes Hyperlipidemia Breast cancer Hypertension Uterine cancer Thyroid disease History History History 2 2 Term 1 0 Miscarriages/Ectopic 0 Living Children 1 Vitals/I&O/Wt Last Vital Signs Pulse 110 H 01/19/24 05:16 Resp 18 01/19/24 05:51 BP 132/87 01/19/24 05:16 O2 Del Method Room Air 01/19/24 05:57 Weight last 48 hrs Weight 197 lb Weight 197 lb Physical Exam 2 Narrative: Sitting on birthing ball in labor room Const: COMMON NORMALS: no acute distress, healthy appearing and alert Resp: COMMON NORMALS: normal respiratory effort and clear to auscultation bilaterally Cardio: COMMON NORMALS: regular rate, regular rhythm, S1 normal heart sound present, S2 normal heart sound present and No murmurs present (Cardio) : OTHER: Gravid- size=dates SVE on admission per RN 3/80/-3 and changed to 4/80/-3 after 1 hour Extremity: NARRATIVE EXTREMITY EXAM: Trace LE edema Data 01/19/24 06:05 Results Labs OB ([facility]): 2 Obstetrics 02/15/22 Blood Type O Positive 01/19/24 Antibody Screen Negative 01/19/24 Hct 38.6 % (36-47) 01/19/24 Hgb 13.10 g/dL (11.27-16.99) 01/19/24 Rho(D) Type Rh positive 01/19/24 Plt Count 205 10^3/cmm (157-399) 01/19/24 A&P Assessment and plan (1) Spontaneous onset of labor: (2) Term : Plan 23yo at 39w0d admitted for labor. Category I FHT. Routine CBC, type and screen Intermittent EFM as long as Category I FHT per protocol. Fentanyl protocol- may have epidural when desired. Expectant management. Attestations 2 Medical Necessity Statement*: [facility]'s hospital stay will require greater than 2 midnights for labor and delivery and care. Coding Level of Care Code Acute Code for Chg Fwd Diagnoses Spontaneous onset of labor Term Z34.90
[2024-01-19] MEDS: lactated ringers 1,000 ML 999 ML IV ×2 (08:36→09:49)
[2024-01-19] MEDS: ROPivacaine syringe 100 MG/50 ML SYRINGE 10 MG EPIDURAL ×2 (09:45→13:32)
--- NOTE | 2024-01-19 10:20 | ANES.PREANE2 ---
Pre-Anesthetic Assessment Height/Weight: Height 1.63 m Weight 89.358 kg Pulse Resp BP Pulse Ox O2 Del Method 112 H 18 112/77 100 Room Air 01/19/24 10:16 01/19/24 05:51 01/19/24 10:11 01/19/24 10:16 01/19/24 05:57 Hx postdural puncture headache with prior epidural Familial anesthetic complications: none Social No alcohol and No tobacco Exam alert, oriented x 3, clear to auscultation bilaterally and regular rate & rhythm Airway Mallampati: Class I Dentition: full Anesthetic Plan ASA status: 1 Anesthesia: Regional (specify below) Risk of > 500 ml blood loss (7ml/kg in children): No Medications/Allergies Home Medications Medication Instructions Recorded Confirmed Last Taken Type rblhglng-gqt-Yz-FA 1 mg 1 tab PO ONCE 01/18/24 01/18/24 01/17/24 08:00 History tablet Allergies Allergy/AdvReac Type Severity Reaction Status Date / Time No Known Allergies Allergy Verified 12/14/22 16:27 Current Medications Generic Name Dose Route Start Last Admin Trade Name Freq PRN Reason Stop Dose Admin Lactated Ringer's 1,000 mls @ 999 mls/hr 01/19/24 06:33 01/19/24 09:49 Lactated Ringers IV 999 mls/hr .Q1H1M PRN Administration See label comments [facility] Anesthesia Medical History (Updated 01/19/24 @ 09:32 by Itzel Alonso DO) No pertinent past medical history Denies diabetes, asthma, hypertension, seizures, DVT/PE PCP: [facility] Surgical History S/P wisdom tooth extraction 01/2017 S/P breast augmentation x2 08/2019, bilateral breast augmentation revision of the left side in February or March of 2020 due to encapsulation/rejection of implants Family History Grandfather Stroke maternal Heart disease maternal and paternal Denies family history of Colon cancer Ovarian cancer Diabetes Hyperlipidemia Breast cancer Hypertension Uterine cancer Thyroid disease Female Reproductive History : 2 Data Anesthesia 01/19/24 06:05 Short CBC 01/19/24 Range/Units 06:05 WBC 8.29 (3.29-11.43) 10^3/uL Hgb 13.10 (11.27-16.99) g/dL Hct 38.6 (36-47) % MCV 87.5 (85-98) fl Plt Count 205 (157-399) 10^3/cmm Neut % (Auto) 67.3 % Neut # (Auto) 5.58 (1.8-7.7) 10^3/uL Blood Bank 01/19/24 06:05 Blood Type O Positive Rho(D) Type Rh positive Antibody Screen Negative Cardiac Studies: No Data to Display
--- NOTE | 2024-01-19 10:21 | ANES.PROC ---
Anesthesia Procedures Procedure/Date: 01/19/24 Epidural: Time Out Performed: Yes Consents Signed: Procedure Consent Consent: requested by attending/covering physician, from patient, from other, risks and benefits reviewed and patient agrees to proceed Lumbar Level: L2-L3 Epidural position: sitting Epidural procedure: sterile prep of area, 1% lidocaine to numb the area, 18 g needle, negative for paresthesia passed, neg for paresthesia, test dose given, 1.5% xylocaine 1:200k epi (5), 0.2% Ropivacaine bolus ml (5), placed PCEA, no systemic response, sterile dressing applied, L.U.D. no apparent complications and 0.2% Ropiavacaine @ mls/hr Additional Comments: Tissue planes showed very little resistance to saline along pathway attempts, 3 attempts (2 at L3-4, 1 at L2-3 with success at L2-3)
--- NOTE | 2024-01-19 10:44 | PC.NURSE ---
This nurse witnessed Dr. Venegas make multiple attempts of an epidural placement.
[2024-01-19] MEDS: dextrose 5%-lactated ringers 1,000 ML 125 ML IV ×2 (11:00→15:50)
[2024-01-19] MEDS: oxytocin 30 UNIT/500 ML BAG 600 UNIT IV (17:45)
[2024-01-19] MEDS: tranexamic acid 1,000 MG/100 ML PREMIX 600 MG IV (18:00)
--- NOTE | 2024-01-19 18:13 | P.PCNOB_ITS ---
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 Her initial SVE was 3/80/-3 and she changed to a 4/80/-3 over the course of an hour. She was expectantly managed and appropriately changed to complete. She did receive epidural for anesthesia. SROM with meconium fluid less than 1 hour prior to delivery. Delivery: Patient progressed to complete. Patient placed in lithotomy position. Patient pushed with adequate effort. Partway through pushing patient requested to transition to hands and knees position to push. In this maternal position head delivered in OA position, no nuchal cord was present. Shoulders delivered without difficulty and rest of body delivered with some traction and maternal pushing and delivered with epidural anesthesia however with limited pain control. Mouth and nares bulb suctioned. Infant noted to be vigorous with spontaneous cry. Patient then rotated back to lithotomy position and infant placed on maternal abdomen. Cord clamped and cut after 1 minute delay. Placenta spontaneously delivered and noted to be intact. Pitocin started. Fundus was noted to be firm with massage. The vagina and cervix were inspected and no lacerations were noted. Right sided periurethral abrasion was noted and was not bleeding. Fundus was noted to become moderately firm that improved with massage however with each massage was noted to have a steady trickle of bleeding. TXA was given and bleeding was noted to improve. Fundus was again noted to be firm. Male born at 1740 on 01/19/2025 with 8/9 weighing 9 pounds 7 ounces and measuring 22.5 inches in length, 14 inches head circumference, and 14.75 inches chest circumference. Placenta noted to be intact with centrally inserted umbilical cord and three- vessel cord. Complications: Maternal none Infant none History History History 2 Term 2 0 Miscarriages/Ectopic 0 Living Children 2 A&P Assessment and plan (1) Spontaneous vaginal delivery: Coding Level of Care Code Acute Code for Chg Fwd Diagnoses Spontaneous vaginal delivery O80
[2024-01-19] MEDS: benzocaine-menthol 78 gm Canister 1 SPRAY TOPICAL (20:08)
[2024-01-19] MEDS: ibuprofen 800 mg tablet PO (20:08)
[2024-01-19] MEDS: acetaminophen 325 mg Tablet 650 MG PO (20:08)
[2024-01-19] MEDS: lanolin oint 7 gm 1 APPLIC TOPICAL (20:09)
[2024-01-20 04:24] VITALS: BP 107/73; PULSE 83; O2SAT 99
[2024-01-20 05:45] LABS: Hematocrit 32.6 % (36-47); Mean Corpuscular HGB Conc 34.4 g/dL (30-55); Mean Corpuscular Hemoglobin 30.2 pg (27-33); Mean Corpuscular Volume 87.9 fl (85-98); Mean Platelet Volume 9.3 fL (7.4-10.4); Platelet Count 186 10^3/cmm (157-399); Red Blood Count 3.71 10^6/uL (3.85-5.65); Red Cell Distribution Width 13.5 % (12.1-15.1); White Blood Count 10.96 10^3/uL (3.29-11.43)
[2024-01-20] MEDS: acetaminophen 325 mg Tablet 650 MG PO (06:38)
[2024-01-20] MEDS: ibuprofen 800 mg tablet PO ×2 (08:29→16:25)
[2024-01-20] MEDS: PRENATAL VIT NO.130/IRON/FOLIC 1 EACH TABLET PO (08:29)
[2024-01-20] MEDS: docusate sodium 100 mg Capsule PO (08:29)
[2024-01-20 10:00] VITALS: BP 113/75; PULSE 91; RESP 18; TEMP 36.5; O2SAT 98
--- NOTE | 2024-01-20 12:10 | PM.OBGYDC ---
Discharge Providers [employer] Date of Admission: 01/19/24 14:50 Date of Discharge: 01/22/24 Attending Provider at Admission: Itzel Alonso DO Attending Provider at Discharge: Itzel Alonso DO Primary Care Provider: Itzel Alonso DO Diagnoses at Discharge Discharge Diagnosis (1) Spontaneous vaginal delivery: Status: Acute Reason for Visit Reason for Visit: contractions Hospital Course Hospital Course Pre-Delivery Course: She was admitted on 01/19/2024 after presenting with contractions for the last 2 days that intensified in the early childhood services coordinator. Her initial SVE was 3/80/-3 and she changed to a 4/80/-3 over the course of an hour. She was expectantly managed and appropriately changed to complete. She did receive epidural for anesthesia. SROM with meconium fluid less than 1 hour prior to delivery. Delivery: Patient progressed to complete. Patient placed in lithotomy position. Patient pushed with adequate effort. Partway through pushing patient requested to transition to hands and knees position to push. In this maternal position head delivered in OA position, no nuchal cord was present. Shoulders delivered without difficulty and rest of body delivered with some traction and maternal pushing and delivered with epidural anesthesia however with limited pain control. Mouth and nares bulb suctioned. Infant noted to be vigorous with spontaneous cry. Patient then rotated back to lithotomy position and placed on maternal abdomen. Cord clamped and cut after 1 minute delay. Placenta spontaneously delivered and noted to be intact. Pitocin started. Fundus was noted to be firm with massage. The vagina and cervix were inspected and no lacerations were noted. Right sided periurethral abrasion was noted and was not bleeding. Fundus was noted to become moderately firm that improved with massage however with each massage was noted to have a steady trickle of bleeding. TXA was given and bleeding was noted to improve. Fundus was again noted to be firm. Male born at 1740 on 01/19/2025 with 8/9 weighing 9 pounds 7 ounces and measuring 22.5 inches in length, 14 inches head circumference, and 14.75 inches chest circumference. Placenta noted to be intact with centrally inserted umbilical cord and three-vessel cord. Complications: Maternal none Infant none Estimated blood loss (mL): 250 course: Patient underwent on 01/19/24. course was uncomplicated. Following delivery patient ambulated well, tolerated a normal diet without nausea or vomiting. Pain was well on PO medications, well, no leg/calf pain, no calf/leg swelling, normal urination, passing gas and normal bowel movements. Vaginal bleeding thin lochia and decreasing. labs significant for hemoglobin of 11.2 down from 13.1 on admission. Follow-up planned for 2 and 6 weeks . Warning signs for endometritis, pre-eclampsia, DVT/PE, mastitis were reviewed, discussed additional warning signs including increased vaginal bleeding, worsening abdominal pain. Pelvic rest and activity precautions reviewed as well. She is discharged on 01/20/24 in stable condition. Information Peripartum Data: Infant Delivery Method: Vaginal Physical Exam Const: COMMON NORMALS: no acute distress, healthy appearing and alert Resp: COMMON NORMALS: normal respiratory effort and clear to auscultation bilaterally AUSCULTATION: clear to auscultation bilaterally Cardio: COMMON NORMALS: regular rate, regular rhythm, S1 normal heart sound present, S2 normal heart sound present and No murmurs present (Cardio) RATE: regular rate RHYTHM: regular rhythm HEART SOUNDS: S1 normal heart sound present and S2 normal heart sound present : OTHER: Uterine fundus firm and below the umbilicus Extremity: NARRATIVE EXTREMITY EXAM: No LE edema Neuro: SENSORIUM/ORIENTATION: Yes alert Urinary Catheter Management: Cordero: Cath Placed During This Visit: yes, but has since been removed by the nurse Reason for Continuing Indwelling Catheter: Other Urinary Catheter Date of Insertion: 01/19/24 Urinary Catheter Time of Insertion: 10:32 Date Urinary Catheter Removed: 01/19/24 Time Urinary Catheter Discontinued: 17:10 History History History 2 Term 2 0 Miscarriages/Ectopic 0 Living Children 2 Discharge Data Studies Completed and Pending Laboratory Results WBC 10.96 10^3/uL (3.29-11.43) 01/20/24 05:40 RBC 3.71 10^6/uL (3.85-5.65) L 01/20/24 05:40 Hgb 11.20 g/dL (11.27-16.99) L 01/20/24 05:40 Hct 32.6 % (36-47) L 01/20/24 05:40 MCV 87.9 fl (85-98) 01/20/24 05:40 MCH 30.2 pg (27-33) 01/20/24 05:40 MCHC 34.4 g/dL (30-55) 01/20/24 05:40 RDW 13.5 % (12.1-15.1) 01/20/24 05:40 Plt Count 186 10^3/cmm (157-399) 01/20/24 05:40 MPV 9.3 fL (7.4-10.4) 01/20/24 05:40 Neut % (Auto) 67.3 % 01/19/24 06:05 Lymph % (Auto) 25.1 % 01/19/24 06:05 [place] % (Auto) 5.7 % 01/19/24 06:05 Eos % (Auto) 1.3 % 01/19/24 06:05 Baso % (Auto) 0.2 % 01/19/24 06:05 Neut # (Auto) 5.58 10^3/uL (1.8-7.7) 01/19/24 06:05 Lymph # (Auto) 2.1 10^3/uL (0.8-4.8) 01/19/24 06:05 [place] # (Auto) 0.5 10^3/uL (0.2-0.9) 01/19/24 06:05 Eos # (Auto) 0.1 10^3/uL (0.0-0.8) 01/19/24 06:05 Baso # (Auto) 0.0 10^3/uL (0.0-0.1) 01/19/24 06:05 Nucleated RBC % (auto) 0 % 01/19/24 06:05 Nucleated RBCs # 0.0 /100WBC 01/19/24 06:05 Blood Type O Positive 01/19/24 06:05 Rho(D) Type Rh positive 01/19/24 06:05 Antibody Screen Negative 01/19/24 06:05 Vitals Last Vital Signs Temp 97.7 F 01/20/24 10:00 Pulse 91 01/20/24 10:00 Resp 18 01/20/24 10:00 BP 113/75 01/20/24 10:00 Pulse Ox 98 01/20/24 10:00 O2 Del Method Room Air 01/20/24 10:00 Results Labs OB ([facility]): Obstetrics US 02/15/22 Blood Type O Positive 01/19/24 Antibody Screen Negative 01/19/24 Hct 32.6 % (36-47) L 01/20/24 Hgb 11.20 g/dL (11.27-16.99) L 01/20/24 Rho(D) Type Rh positive 01/19/24 Plt Count 186 10^3/cmm (157-399) 01/20/24 Discharge Plan Discharge Patient Disposition: Home Condition: Stable Prescriptions: New ibuprofen 800 mg Tablet 800 mg PO TID Qty: 90 0RF docusate sodium 100 mg Capsule 100 mg PO BID Qty: 60 0RF Continued [id number]-[id number] 1 mg Tablet 1 tab PO ONCE Discharge Orders: Discharge Order (Routine); Ordered 01/20/24 Ordered By: Itzel Alonso Referrals: Itzel Alonso DO [Primary Care Provider] - 02/03/24 8:15 am Discharge Diet: Regular Discharge Activity: Increase activity as tolerated Patient Instructions: Depression (DC), Perineal Care (DC), Bleeding (GEN), Preeclampsia and Eclampsia After Delivery (GEN), Hemorrhage (GEN), OB Discharge Report, OB Food/Drug Interaction Guide, OB Care at Home, Opioid Safety, OB Vaginal Deliveries, Abnormal Bleeding Activity Restrictions/Additional Instructions: Pelvic rest for 6 weeks. Follow-up with Dr. Alonso at 2 and 6 weeks . Discharge Attestations [employer] Time Spent in Discharge Care*: greater than 30 min Coding Level of Care Code Acute Code for Chg Fwd Diagnoses Spontaneous vaginal delivery O80
--- NOTE | 2024-01-20 13:16 | ANE.PACU2 ---
Inpatient post-anesthesia follow up: Airway intact: Yes Vital signs: Temperature 97.7 F Pulse Rate 91 Respiratory Rate 18 Blood Pressure 113/75 Pulse Oximetry 98 Oxygen Delivery Me thod Room Air Oxygen Flow Rate Fraction of Inspir ed Oxygen Hydration adequate: Yes Nausea and vomiting: No Pain level: 1 Mental status: Baseline Epidural Start/End: Epidural Start Date: 01/19/24 Epidural Start Time: 09:21 Epidural End Date: 01/19/24 Epidural End Time: 12:19
[2024-01-20 16:32] VITALS: BP 120/83; PULSE 88; RESP 16; TEMP 36.7; O2SAT 97
[2024-01-20 18:40] VITALS: BP 118/79; PULSE 92; RESP 18; TEMP 36.6; O2SAT 98
== END 2024-01-20 18:40 | disposition home or self-care (01) | DRG 807 ==
LOC: OPOB 14:50 → OBGYN 14:50
PROVIDERS: Admitting Provider Family Medicine; PCP Family Medicine; Visit Provider Family Medicine
DX: O77.0 Labor and delivery complicated by meconium in amniotic fluid (principal); Z37.0 Single live birth; Z3A.39 39 weeks gestation of pregnancy
CPT/HCPCS: 36415; 51702; 59025; 59409; 85025; 85027; 86850; 86900; 98960; 99211; J2590; J2795; J7120; J7121

== ENCOUNTER 2024-01-26 14:11 | Outpatient (CLI) | payer OTHER, SELFPAY ==
[2024-01-20 10:00] VITALS: PULSE 91; RESP 18; TEMP 36.5; O2SAT 98
[2024-01-20 16:32] VITALS: PULSE 88; RESP 16; TEMP 36.7; O2SAT 97
[2024-01-26 14:28] VITALS: BMI 31.0
[2024-01-26 14:31] VITALS: BP 136/88; PULSE 84
[2024-01-26 14:50] LABS: Basophils % 0.4 %; Eosinophils # 0.4 10^3/uL (0.0-0.8); Eosinophils % 3.9 %; Hematocrit 39.2 % (36-47); Lymphocytes # 3.4 10^3/uL (0.8-4.8); Lymphocytes % 36.8 %; Mean Corpuscular HGB Conc 33.7 g/dL (30-55); Mean Corpuscular Hemoglobin 29.6 pg (27-33); Mean Corpuscular Volume 87.9 fl (85-98); Monocytes # 0.6 10^3/uL (0.2-0.9); Monocytes % 6.5 %; Neutrophils # 4.75 10^3/uL (1.8-7.7); Neutrophils % 51.9 %; Nucleated Red Blood Cells % 0 %; Platelet Count 338 10^3/cmm (157-399); Red Blood Count 4.46 10^6/uL (3.85-5.65); Red Cell Distribution Width 13.3 % (12.1-15.1); White Blood Count 9.17 10^3/uL (3.29-11.43)
[2024-01-26 15:08] LABS: Alanine Aminotransferase 26 U/L (0-33); Albumin Level 3.8 g/dL (3.5-5.2); Alkaline Phosphatase 90 U/L (35-105); Anion Gap 14.8 (5-19); Aspartate Amino Transferase 40 U/L (0-32); Blood Urea Nitrogen 12 mg/dL (6-20); Calcium 9.1 mg/dL (8.5-10.5); Carbon Dioxide 23 mmol/L (22-29); Chloride 104 mmol/L (98-107); Creatinine Clr Calc Pharmacy 224.7943; Globulin 3.3 g/dL (1.3-4.6); Glomerular Filtration Rate 196.1 mL/min (90-130); Glucose 75 mg/dL (65-115); Osmolality Calculated 284 mOsm/kg (285-295); Potassium 3.8 mmol/L (3.5-5.1); Sodium 138 mmol/L (136-145); Total Bilirubin 0.2 mg/dL (0.15-1.2); Total Protein 7.1 g/dL (6.6-8.7); Uric Acid 4.1 mg/dL (2.4-5.7)
[2024-01-26 15:10] LABS: Add Urine Microscopic? YES; Bilirubin Urine Neg (Negative); Blood Urine 2+ (Negative); Glucose Urine UA Norm (Normal); Ketones Urine Negative (Negative); Leukocyte Esterase Urine Negative (Negative); Nitrate Urine Negative (Negative); Protein Urine Neg (Negative); Specific Gravity, Urine 1.005 (1.005-1.030); Urine Appearance Clear (CLEAR); Urine Color Colorless (Yellow); Urobilinogen Urine Norm (Negative); pH Urine 7 (5-7)
[2024-01-26 15:11] VITALS: BP 129/84; PULSE 79
[2024-01-26 15:12] LABS: RBC Urine 0-4 /hpf (0-2); Transitional Epi Cells Urine RARE /hpf; WBC Urine RARE /hpf (0-5)
[2024-01-26 15:13] LABS: Add Urine Culture? No; Urine Creatinine 36 mg/dL (28-217); Urine Protein Random 4 mg/dL
[2024-01-26 15:14] LABS: UPRO/UCREAT Ratio 0.11 mg/mg CR
[2024-01-26 15:26] VITALS: BP 117/75; PULSE 77
[2024-01-26 15:41] VITALS: BP 108/69; PULSE 73
[2024-01-26 15:56] VITALS: BP 104/66; PULSE 87
== END 2024-01-26 16:10 | disposition home or self-care (01) ==
LOC: OPOB 14:12 → OBGYN 14:16
PROVIDERS: PCP Family Medicine; Visit Provider Family Medicine
DX: O26.899 Other specified pregnancy related conditions, unspecified trimester (principal)
CPT/HCPCS: 36415; 80053; 81001; 82570; 84156; 84550; 85025

== ENCOUNTER 2024-10-25 08:03 | Outpatient (CLI) | payer OTHER, SELFPAY ==
--- NOTE | 2024-10-25 08:04 | MM_ITS ---
WS: [id number] RIGHT 3D TOMOSYNTHESIS DIGITAL MAMMOGRAPHY WITH CAD CLINICAL INFORMATION: BREAST LUMP OR MASS RIGHT HISTORY: Palpable lump RIGHT breast COMPARISON: Baseline TECHNIQUE: 3 views of the right breast were obtained. FINDINGS: Scattered fibroglandular densities of the right breast. Palpable marker upper outer RIGHT breast. No underlying mammographic abnormalities. Ultrasound is pending. RIGHT breast implant is intact. Slight protuberance in the implant deep to the palpable marker suspicious for extracapsular rupture. Fibrosis with slight capsular nodularity involving the RIGHT breast implant. ULTRASOUND BREAST RIGHT TECHNIQUE: Ultrasound right breast focused area of concern. CLINICAL INFORMATION: BREAST LUMP OR MASS RIGHT FINDINGS: Ultrasound RIGHT breast area of concern. No suspicious cystic or solid lesions deep to the area of concern. Silicone implant protuberant suspicious for extracapsular rupture. Recommend breast surgery/plastic surgery consultation MM/MM diag RT tomosynthesis [id number] IMPRESSION: DENSITY: There are scattered areas of fibroglandular density. BI-RADS: 2 - Benign. FOLLOW UP: Age 39 Recommend annual screening mammography age 39
== END 2024-10-25 08:04 | disposition home or self-care (01) ==
PROVIDERS: PCP Family Medicine; Visit Provider Family Medicine
DX: N63.11 Unspecified lump in the right breast, upper outer quadrant (principal); R92.321 Mammographic fibroglandular density, right breast; Z98.82 Breast implant status; R93.89 Abnormal findings on diagnostic imaging of other specified body structures
CPT/HCPCS: 76642; 77061; G0279

== ENCOUNTER 2025-03-18 14:51 | Emergency (ER) | payer OTHER, SELFPAY ==
--- NOTE | 2025-03-18 14:58 | USR_ITS ---
PROCEDURE INFORMATION: Exam: US First Trimester, Transabdominal and US , Transvaginal Exam date and time: 03/18/2025 3:48 PM Age: 24 years old Clinical indication: Screening exam; Routine US, uterus; Additional info: Threatened miscarriage LABS AND CLINICAL REPORTS: Last menstrual period start date: 01/26/2025 TECHNIQUE: Imaging protocol: Real-time transabdominal obstetrical ultrasound of the maternal pelvis and a first trimester , less than 14 weeks 0 days, with image documentation. Transvaginal imaging was used for better evaluation of the fetus, adnexa, and/or cervix. COMPARISON: US OB >= 14 weeks fetus [id number] 09/06/2023 8:14 AM FINDINGS: GESTATION: Gestation: No intrauterine gestational sac. Embryo/ cardiac activity (BPM): Not detected Extra-embryonic membranes/Placenta: Not applicable Amniotic/Chorionic fluid: Not applicable BIOMETRY: Gestational age (AUA): Not applicable MATERNAL: Uterus: The uterus is retroflexed. The endometrium is heterogeneous in echotexture and ill-defined. Endometrial stripe thickness measures 17 mm. Cervix: The cervix is patent. The cervical canal contains a small volume of fluid and debris. Right ovary/adnexa: The right ovary is not identified. Left ovary/adnexa: The left ovary is not identified. Intraperitoneal space: Trace free fluid in the pelvis. Urinary bladder: The maternal bladder is decompressed. US/US OB <=14 wk fetus w transvag IMPRESSION: No intrauterine . In the setting of positive beta HCG the differential diagnosis includes early intrauterine , spontaneous , and ectopic . No ectopic is visible. There is no sign of significant intraperitoneal bleeding in the pelvis. Recommend continued follow-up beta hCG and repeat ultrasound if necessary to confirm the diagnosis.
--- OUTSIDE RECORDS SUMMARY | 2025-03-18 14:58 | XMS_ITS | Patient Health Record ---
Author Organization [facility] Address [address] [place] [address] Care Team Providers Care Drink Box Mechanic Name Role Phone Cramer, Emerita Primary Care Provider [phone] EMERITA CRAMER Unavailable Unavailable Allergies No Known Allergies Reason For Referral No Information Medications Medication SIG (Take, Route, Fr equency, Duration) Notes Start Date End Date Status FLUoxetine HCl 20 MG 1 capsule Orally On ce a day for 30 days Active busPIRone HCl 10 MG 1/2 - 1 tablet Orall y Twice a day for 30 days Active Social History Tobacco Use: Social History Observation Description Date Details (start date - stop date) Unknown xTobacco Use/Smoking Question Answer Notes Are you a Uses tobacco in other forms Additional Findings: Tobacco User e-Cigarette PHQ-9 Question Answer Notes Little interest or pleasure in doing things Not at all Feeling down, depressed, or hopeless Several day s Trouble falling or staying asleep, or sleeping t oo much Not at all Feeling tired or having little energy Several da ys Poor appetite or overeating Not at all Feeling bad about yourself, or that you are a failure, or have let yourself or your family down Several days Trouble concentrating on thi ngs, such as reading the newspaper or watching television Not at all Moving or speaking so slowly that other people could have noticed. Or the opposite ? being so fidgety or restless that you have been moving around a lot more than usual Not at all Thoughts that you would be b opal off , or of hurting yourself in some way Not at all Total Score 3 Interpretation Minimal Depression Section Notes: Depression screen completed 02/22/2023 score 3 Depression screen completed 02/22/2023 score 3 Problems Problem Type SNOMED Code ICD Code Onset Dates Problem Status W/U Status Risk Notes Problem 63467021 Anxiety (F41.9) Active confirmed Plan Of Treatment No Information Insurance Providers Payer Name Payer Address Payer Phone Subscriber Number Group Number Insured Name Patient Relationship to Insured Coverage Start Date Coverage End Date Home [facility] Medicaid Replacement [address] [place] [phone] [id number] Marlen Nova Self - patient is the insured Medical (General) History Surgical History Surgery Date(Month/Year) breast reconstruction breast augmentation wisdom teeth extraction Hospitalization History Reason Date(Month/Year) childbirth
[2025-03-18 15:33] VITALS: BP 124/85; PULSE 89; TEMP 36.9; O2SAT 100; BMI 25.7
[2025-03-18 16:43] LABS: Hematocrit 41.1 % (36-47); Hemoglobin 13.20 g/dL (11.27-16.99); Mean Corpuscular HGB Conc 32.1 g/dL (30-55); Mean Corpuscular Hemoglobin 28.3 pg (27-33); Mean Corpuscular Volume 88.2 fl (85-98); Nucleated Red Blood Cells % 0 %; Platelet Count 382 10^3/cmm (157-399); Red Blood Count 4.66 10^6/uL (3.85-5.65); White Blood Count 9.97 10^3/uL (3.29-11.43)
--- NOTE | 2025-03-18 18:26 | ED_ITS ---
HPI - 2 General: Chief complaint: Vaginal Bleeding Stated complaint: vaginal bleeding, cramping, 7 weeks Time Seen by Provider: 03/18/25 18:19 Source: patient Mode of arrival: ambulatory Limitations: no limitations History of Present Illness: 24-year-old female states she is believe s she is 6 weeks states she has been having some vaginal bleeding since Tuesday states that she had some increased bleeding this morning and it has slowed down. She denies any pain denies any lightheadedness denies any worse or improving factors. Has had 2 previous pregnancies with no problems Associated symptoms: Deny abdominal pain, headache(s), nausea or vomiting Related Data Previous Rx's ?Medication ?Instructions ?Recorded azithromycin 250 mg tablet See Rx Instructions PO .COM PLEX #6 10/25/24 tabs prednisone 20 mg tablet 20 mg PO BID 5 days #10 tabs 10/25/24 Allergies Allergy/AdvReac Type Severity Reaction Status Date / Time No Known Allergies Allergy Verified 03/18/25 15:37 Review of Systems 2 Const: Denies: fever(s), chills, body aches or change in appetite ENMT: Denies: throat pain or dental pain Card: Denies: chest pain Resp: Denies: dyspnea GI: Denies: abdominal pain, nausea, vomiting or diarrhea : Reports: vaginal bleeding Musc: Denies: neck pain or back pain Skin/Breast: Denies: rash Neuro: Denies: headache(s) PFSH ED 2 PFSH: Medical History No pertinent past medical history Denies diabetes, asthma, hypertension, seizures, DVT/PE PCP: [facility] Surgical History S/P wisdom tooth extraction 01/2017 S/P breast augmentation x2 08/2019, bilateral breast augmentation revision of the left side in February or March of 2020 due to encapsulation/rejection of implants Family History Grandfather Stroke maternal Heart disease maternal and paternal Denies family history of Colon cancer Ovarian cancer Diabetes Hyperlipidemia Breast cancer Hypertension Uterine cancer Thyroid disease Social History Smoking and tobacco/nicotine status: current every day tobacco/nicotine user e- cigarettes E-Cigarette Details: vaporizer device Second hand smoke exposure: No Alcohol intake: never Substance/Drug Use: never Physical Exam 2 Const: COMMON NORMALS: no acute distress, patient oriented x3 and healthy appearing HENMT: COMMON NORMALS: normocephalic and atraumatic HEAD & SCALP: n ormocephalic and atraumatic Eye: COMMON NORMALS: conjunctivae normal CONJUNCTIVA: Yes conjunctivae normal Neck/C-Spine: COMMON NORMALS: full ROM and supple Chest: COMMONS NORMALS: normal inspection of the chest Resp: COMMON NORMALS: normal respiratory effort Cardio: COMMON NORMALS: regular rate RATE: regular rate GI: COMMON NORMALS: Normal to inspection, nondistended, normoactive bowel sounds present, Soft to palpation, non-tender and no masses PALPATION: Yes Soft to palpation Extremity: COMMON NORMALS: normal to inspection and full ROM Neuro: COMMON NORMALS: patient oriented x3, moves all extremities and no focal motor deficits Psych: COMMON NORMALS: mental status grossly normal, Normal thought process present and cooperative THOUGHT PROCESS: Normal thought process present Skin: COMMON NORMALS: no rashes or lesions noted and no wounds GENERAL SKIN EXAM: no rashes or lesions noted Course 2 Vital Signs: Vital signs: Vital Signs Temperature 98.5 F 03/18/25 15:33 Pulse Rate 89 03/18/25 15:33 Blood Pressure 124/85 03/18/25 15:33 Pulse Oximetry 100 03/18/25 15:33 Oxygen Delivery Me thod Room Air 03/18/25 15:33 MDM - OB/Uterine Contractions Medical Decision Making Patient presents for threatened miscarriage is likely had a miscarriage. Ultrasound showed no signs of ectopic hemoglobin normal vital signs here are normal. Informed her and she needs to follow-up in 2 days for repeat quantitative return to the ER for worsening she understands agrees to plan. Medical Records I reviewed the patient's medical records. Lab Data I reviewed the patient's lab results. 03/18/25 16:28 Radiology Impressions Obstetrics Ultrasound 03/18/25 14:58 IMPRESSION: No intrauterine . In the setting of positive beta HCG the differential diagnosis includes early intrauterine , spontaneous , and ectopic . No ectopic is visible. There is no sign of significant intraperitoneal bleeding in the pelvis. Recommend continued follow-up beta hCG and repeat ultrasound if necessary to confirm the diagnosis. Laboratory Results WBC 9.97 10^3/uL (3.29-11.43) 03/18/25 16: RBC 4.66 10^6/uL (3.85-5.65) 03/18/25 16:28 Hgb 13.20 g/dL (11.27-16.99) 03/18/25 16:28 Hct 41.1 % (36-47) 03/18/25 16:28 MCV 88.2 fl (85-98) 03/18/25 16:28 MCH 28.3 pg (27-33) 03/18/25 16: MCHC 32.1 g/dL (30-55) 03/18/25 16: RDW 13.6 % (12.1-15.1) 03/18/25 16: Plt Count 382 10^3/cmm (157-399) 03/18/25 16:28 MPV 8.8 fL (7.4-10.4) 03/18/25 16:28 Neut % (Auto) 60.6 % 03/18/25 16:28 Lymph % (Auto) 31.4 % 03/18/25 16:28 [place] % (Auto) 5.4 % 03/18/25 16:28 Eos % (Auto) 1.7 % 03/18/25 16: Baso % (Auto) 0.5 % 03/18/25 16: Neut # (Auto) 6.04 10^3/uL (1.8-7.7) 03/18/25 16:28 Lymph # (Auto) 3.1 10^3/uL (0.8-4.8) 03/18/25 16:28 [place] # (Auto) 0.5 10^3/uL (0.2-0.9) 03/18/25 16:28 Eos # (Auto) 0.2 10^3/uL (0.0-0.8) 03/18/25 16: Baso # (Auto) 0.1 10^3/uL (0.0-0.1) 03/18/25 16:28 Nucleated RBC % (auto) 0 % 03/18/25 16:28 Nucleated RBCs # 0.0 /100WBC 03/18/25 16:28 Ser , Semi-Qnt 2822.00 mIU/mL 03/18/25 16:28 All radiology interpretation(s) finalized by discharge Discharge Plan Discharge Patient Disposition: Home Clinical Impression: Threatened miscarriage Condition: Stable Prescriptions: No Action prednisone 20 mg tablet 20 mg PO BID 5 Days Qty: 10 0RF azithromycin 250 mg tablet See Rx Instructions PO .COMPLEX Qty: 6 0RF Rx Instructions: take 500 mg today (day 1), then 250 mg for 4 days (days 2-5) PO Discharge Orders: Discharge ED (Routine); Ordered 03/18/25 Ordered By: Wyatt Rodriguez Referrals: Itzel Alonso DO [Primary Care Provider, PHYTOPATHOLOGIST] Discharge Diet: Advance as tolerated Discharge Activity: Resume usual activity Patient Instructions: Threatened Miscarriage (ED) Activity Restrictions/Additional Instructions: repeat quantative in 2 days Print Language: Danish Coding Level of Care Code ED Liquid Sugar Melter for Kimberly Engel
[2025-03-18 18:41] VITALS: BP 118/80; PULSE 95; RESP 18; O2SAT 99
--- NOTE | 2025-03-20 11:10 | PC.NURSE ---
OB referral made.
== END 2025-03-18 18:42 | disposition home or self-care (01) ==
PROVIDERS: Emergency Provider Emergency Medicine; PCP Family Medicine
DX: O20.0 Threatened abortion (principal); Z3A.01 Less than 8 weeks gestation of pregnancy; F17.290 Nicotine dependence, other tobacco product, uncomplicated
CPT/HCPCS: 36415; 76801; 76817; 84702; 85025; 99284

== ENCOUNTER 2025-07-12 06:59 | Outpatient (CLI) | payer OTHER, SELFPAY ==
--- NOTE | 2025-07-12 07:04 | US_ITS ---
WS: [id number] EARLY OBSTETRICAL ULTRASOUND (<14 WEEKS). HISTORY: BLEEDING COMPARISON: 03/18/2025. Transabdominal and transvaginal imaging is submitted. Irregular shaped gestational sac is identified. Gestational sac measurements correspond to a gestation of 9 weeks and 0 days. There is a pole identified but no cardiac activity. pole measurement of 1.1 cm corresponds to a gestation of 7 weeks and 2 days. Mildly complex and moderate size adjacent subchorionic hemorrhage. No free fluid. LEFT ovary measures 3.0 x 2.7 x 3.4 cm. RIGHT ovary measures 2.1 x 2.2 x 2.4 cm. Corpus luteal cyst associated with the LEFT ovary. US/US OB <=14 wk fetus w transvag IMPRESSION: 1. Single intrauterine gestation of 7w2d with an EDC of 02/26/2026. 2. No cardiac activity identified. Findings are consistent with failed early p regnancy. 3. Moderate-sized subchorionic hemorrhage. Gestational sac is also irregular b ut at this time remains in the normal position.
== END 2025-07-12 07:00 | disposition home or self-care (01) ==
LOC: RAD 07:01
PROVIDERS: PCP Family Medicine; Visit Provider Family Medicine
DX: O46.8X1 Other antepartum hemorrhage, first trimester (principal); Z3A.01 Less than 8 weeks gestation of pregnancy; R93.89 Abnormal findings on diagnostic imaging of other specified body structures; N83.12 Corpus luteum cyst of left ovary
CPT/HCPCS: 76801; 76817